=== PATIENT | female | born 1985 | race American Indian/Alaskan Native ===

== ENCOUNTER 2016-10-21 21:27 | Emergency (ER) | payer MEDICAID ==
[2016-10-21 23:18] VITALS: BP 133/67
== END 2016-10-22 01:05 | disposition left against medical advice (07) ==
LOC: ED 21:27
DX: R51 Headache (principal); R42 Dizziness and giddiness; Z53.21 Procedure and treatment not carried out due to patient leaving prior to being seen by health care provider

== ENCOUNTER 2018-07-06 01:20 | Emergency (ER) | payer MEDICAID ==
[2018-07-06 01:47] VITALS: BP 147/71
[2018-07-06] MEDS ORDERED: NACL 0.9% 1000 ML 1,000 ML IV ONE (03:31)
[2018-07-06 04:06] LABS: Bacteria,Urine 4+ /HPF (Negative); Bilirubin,Urine NEG (Negative); Blood,Urine LG (Negative); Color,Urine Yellow (Yellow); Mucus,Urine FEW /HPF; Protein,Urine <15 mg/dL mg/dL (Negative)
[2018-07-06 04:13] LABS: RBC,Urine > 182.0 /HPF (0.0-6.0)
[2018-07-06 04:19] LABS: Alanine Aminotransferase 16 units/L (7-56); Albumin 4.1 g/dL (3.9-5); BUN/Creatinine Ratio 10; Blood Urea Nitrogen 6 mg/dL (7-17); Calcium 9.2 mg/dL (8.4-10.2); Hemolysis Index 8; Lipase 31 units/L (13-60)
[2018-07-06 04:44] LABS: Basophils % (Auto) 0.4 % (0.0-1.8); Eosinophils # (Auto) 0.1 K/mm3 (0.0-0.4); Eosinophils % (Auto) 1.1 % (0.0-4.3); Hematocrit 39.7 % (30.3-42.9); Hemoglobin 13.3 gm/dl (10.1-14.3); Lymphocytes # (Auto) 2.2 K/mm3 (1.2-5.4); Lymphocytes % (Auto) 17.4 % (13.4-35.0); Mean Corpuscular HGB Conc 34 % (30-34); Mean Corpuscular Hemoglobin 30 pg (28-32); Mean Corpuscular Volume 88 fl (79-97); Monocytes # (Auto) 0.8 K/mm3 (0.0-0.8); Monocytes % (Auto) 6.5 % (0.0-7.3); Platelet Count 234 K/mm3 (140-440); Red Cell Distribution Width 13.1 % (13.2-15.2)
== END 2018-07-06 05:00 | disposition left against medical advice (07) ==
LOC: ED 01:20
DX: R10.9 Unspecified abdominal pain (principal); Z53.21 Procedure and treatment not carried out due to patient leaving prior to being seen by health care provider
CPT/HCPCS: 36415; 80053; 81001; 83690; 84703; 85025

== ENCOUNTER 2019-07-02 01:06 | Emergency (ER) | payer MEDICAID ==
--- NOTE | 2019-07-02 01:25 | Emergency Department Report ---
ED Lower Extremity HPI - General Chief Complaint: Extremity Injury, Lower Stated Complaint: RT ANKLE INJURY Time Seen by Provider: 07/02/19 01:20 Source: patient Mode of arrival: Ambulatory Limitations: No Limitations - History of Present Illness Initial Comments: Patient is a 33-year-old female that presents emergency room with complaints of right ankle pain. Patient states she was walking out of a store she slipped on water and twisted her ankle. Patient states she hit her face on a glass door but is not having any pain in her face. Patient denies swelling to her face. Patient denies headache. Patient denies loss of consciousness. Patient denies blurry vision. Patient denies dizziness. Patient denies headache. Patient states her ankle pain is a 7 out of 10. Patient states pain is worse with walking and better with rest. MD Complaint: ankle injury -: Sudden Injury: Ankle: Right Type of Injury: inversion Place: street/outdoors Severity: severe Severity scale (0 -10): 7 Improves With: rest Worsens With: weight bearing, movement, palpation Context: fall Associated Symptoms: swelling, unable to bear weight - Related Data Home Medications Medication Instructions Recorded Confirmed Last Taken Ambien 10 mg PO HS PRN 09/20/15 02/29/16 Unknown Xanax TAB 1 mg PO BID PRN 09/20/15 02/29/16 Unknown Previous Rx's Medication Instructions Recorded Last Taken Type Furosemide [Lasix] 20 mg PO QDAY #7 tablet 02/29/16 Unknown Rx ALBUTEROL Inhaler (OR & NICU) 2 puff IH QID PRN #1 inhalation 03/04/16 Unknown Rx [ProAir HFA Inhaler] Azithromycin [Zithromax Z-JOHN] 250 mg PO DAILY #6 tab 03/04/16 Unknown Rx guaiFENesin/CODEINE [Robitussin AC] 5 ml PO Q6H PRN #100 oral.liqd 03/04/16 Unknown Rx predniSONE [Deltasone] 20 mg PO QDAY #5 tab 03/04/16 Unknown Rx Amoxicillin/Potassium Clav 1 each PO Q12H #14 tablet 07/30/18 Unknown Rx [Augmentin 500-125 Tablet] Chlorhexidine Mouthwash [Peridex] 15 ml MM BID #1 bottle 07/30/18 Unknown Rx oxyCODONE /ACETAMINOPHEN [Percocet 1 tab PO Q6HR PRN #12 tablet 07/30/18 Unknown Rx 5/325] Ibuprofen [Motrin 800 MG tab] 800 mg PO Q8HR PRN #15 tablet 07/02/19 Unknown Rx Allergies Allergy/AdvReac Type Severity Reaction Status Date / Time No Known Allergies Allergy Verified 04/08/16 02:21 ED Review of Systems ROS: Stated complaint: RT ANKLE INJURY Other details as noted in HPI Constitutional: denies: chills, fever Eyes: denies: eye pain, eye discharge, vision change ENT: denies: ear pain, throat pain Respiratory: denies: cough, shortness of breath, wheezing Cardiovascular: denies: chest pain, palpitations Endocrine: no symptoms reported Gastrointestinal: denies: abdominal pain, nausea, diarrhea Genitourinary: denies: urgency, dysuria, discharge Musculoskeletal: denies: back pain, joint swelling, arthralgia Skin: denies: rash, lesions Neurological: denies: headache, weakness, paresthesias Psychiatric: denies: anxiety, depression Hematological/Lymphatic: denies: easy bleeding, easy bruising ED Past Medical Hx - Past Medical History Previous Medical History?: Yes Hx Kidney Stones: Yes Hx Psychiatric Treatment: Yes (Anxiety) Hx Asthma: Yes Additional medical history: history of left eye trauma 8 years ago. sciatica OVARIAN CYST. 3 herniated disc - Surgical History Past Surgical History?: Yes Additional Surgical History: Mandible surgery - Family History Family history: no significant - Social History Smoking Status: Current Every Day Smoker Substance Use Type: None - Medications Home Medications: Home Medications Medication Instructions Recorded Confirmed Last Taken Type Ambien 10 mg PO HS PRN 09/20/15 02/29/16 Unknown History Xanax TAB 1 mg PO BID PRN 09/20/15 02/29/16 Unknown History Furosemide [Lasix] 20 mg PO QDAY #7 tablet 02/29/16 Unknown Rx ALBUTEROL Inhaler (OR & NICU) 2 puff IH QID PRN #1 inhalation 03/04/16 Unknown Rx [ProAir HFA Inhaler] Azithromycin [Zithromax Z-JOHN] 250 mg PO DAILY #6 tab 03/04/16 Unknown Rx guaiFENesin/CODEINE [Robitussin AC] 5 ml PO Q6H PRN #100 oral.liqd 03/04/16 Unknown Rx predniSONE [Deltasone] 20 mg PO QDAY #5 tab 03/04/16 Unknown Rx Amoxicillin/Potassium Clav 1 each PO Q12H #14 tablet 07/30/18 Unknown Rx [Augmentin 500-125 Tablet] Chlorhexidine Mouthwash [Peridex] 15 ml MM BID #1 bottle 07/30/18 Unknown Rx oxyCODONE /ACETAMINOPHEN [Percocet 1 tab PO Q6HR PRN #12 tablet 07/30/18 Unknown Rx 5/325] Ibuprofen [Motrin 800 MG tab] 800 mg PO Q8HR PRN #15 tablet 07/02/19 Unknown Rx ED Physical Exam - General Limitations: No Limitations General appearance: alert, in no apparent distress - Head Head exam: Present: atraumatic, normocephalic - Eye Eye exam: Present: normal appearance - ENT ENT exam: Present: mucous membranes moist - Neck Neck exam: Present: normal inspection - Respiratory Respiratory exam: Present: normal lung sounds bilaterally. Absent: respiratory distress - Cardiovascular Cardiovascular Exam: Present: regular rate, normal rhythm. Absent: systolic murmur, diastolic murmur, rubs, gallop - GI/Abdominal GI/Abdominal exam: Present: soft, normal bowel sounds - Extremities Exam Extremities exam: Present: normal inspection (right ankle swelling ), tenderness (right ankle), normal capillary refill. Absent: calf tenderness - Back Exam Back exam: Present: normal inspection - Neurological Exam Neurological exam: Present: alert, oriented X3 - Psychiatric Psychiatric exam: Present: normal affect, normal mood - Skin Skin exam: Present: warm, dry, intact, normal color. Absent: rash ED Course Vital Signs 07/02/19 01:09 Temperature 98.2 F Pulse Rate 87 Respiratory 16 Rate Blood Pressure 123/73 O2 Sat by Pulse 100 Oximetry - Reevaluation(s) Reevaluation #1: I discussed all results with patient. I discussed plan of care with patient. Patient agrees with plan of care. Patient is stable for discharge. Patient will be discharged home. Patient given discharge instructions. Patient voiced understanding of discharge instructions. 07/02/19 02:07 ED Lower Extremity MDM - Radiology Data Radiology results: report reviewed, image reviewed interpreted by me: No fracture noted on x-ray. RIGHT ANKLE, 3 VIEWS 07/02/2019 INDICATION / CLINICAL INFORMATION: Right ankle pain and swelling. COMPARISON: None available. FINDINGS: Soft tissue swelling bilaterally but more pronounced laterally. No evidence of acute fracture or dislocation. - Medical Decision Making Patient is a 33-year-old female that presents emergency room for a fall and ankle pain. Patient's x-ray negative. Patient's clinical findings consistent with ankle sprain. Patient states she hit her face on a door but didn't have any pain or headache or blurred vision. Patient is stable for discharge. Patient given discharge instructions and discharged home. - Differential Diagnosis sprain, strain, fracture. Critical care attestation.: If time is entered above; I have spent that time in minutes in the direct care of this critically ill patient, excluding procedure time. ED Disposition Clinical Impression: Fall Qualifiers: Encounter type: initial encounter Qualified Code(s): W19.XXXA - Unspecified fall, initial encounter Ankle pain, right Qualifiers: Chronicity: acute Qualified Code(s): M25.571 - Pain in right ankle and joints of right foot Right ankle sprain Qualifiers: Encounter type: initial encounter Involved ligament of ankle: unspecified ligament Qualified Code(s): S93.401A - Sprain of unspecified ligament of right ankle, initial encounter Disposition: TO HOME OR SELFCARE Is pt being admited?: No Does the pt Need Aspirin: No Condition: Stable Instructions: Ankle Sprain (ED), RICE Therapy (ED) Additional Instructions: Patient to follow-up with primary care in 2-3 days. Patient to follow-up with orthopedist in 2-3 days. Patient to return to ER if condition worsens. Patient to rest. Patient to increase water. Patient to take meds as directed. Patient's take Tylenol or ibuprofen when necessary for pain. Prescriptions: Ibuprofen [Motrin 800 MG tab] 800 mg PO Q8HR PRN #15 tablet PRN Reason: Pain Referrals: PRIMARY MD ALEXANDRU [Primary Care Provider] - 2-3 Days JOSHUA WEATHERS MD [Staff Physician] - 2-3 Days Time of Disposition: 02:04
--- NOTE | 2019-07-02 01:52 | XRay Report ---
RIGHT ANKLE, 3 VIEWS 07/02/2019 INDICATION / CLINICAL INFORMATION: Right ankle pain and swelling. COMPARISON: None available. FINDINGS: Soft tissue swelling bilaterally but more pronounced laterally. No evidence of acute fracture or dislocation. Signer Name: Dion Stevens MD Signed: 07/02/2019 1:47 AM Workstation Name: [id number]
[2019-07-02 02:39] VITALS: BP 129/71
== END 2019-07-02 02:39 | disposition home or self-care (01) ==
LOC: ED 01:06
DX: S93.401A Sprain of unspecified ligament of right ankle, initial encounter (principal); F41.9 Anxiety disorder, unspecified; F17.200 Nicotine dependence, unspecified, uncomplicated; J45.909 Unspecified asthma, uncomplicated; Z98.890 Other specified postprocedural states; Z79.899 Other long term (current) drug therapy; X50.1XXA Overexertion from prolonged static or awkward postures, initial encounter; Y93.89 Activity, other specified; Y92.89 Other specified places as the place of occurrence of the external cause; Y99.8 Other external cause status